=== PATIENT | male | born 2000 | race Caucasian/White ===

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

== ENCOUNTER 2019-04-06 14:55 | Emergency (ER) | payer MEDICAID, OTHER ==
[2019-04-06 15:15] VITALS: BP 173/98
--- NOTE | 2019-04-06 15:33 | ED Physician Documentation ---
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 Noted development of redness and tenderness later/next day and has continued.) Where injury occurred: Work Timing - onset: How many days ago (several) Timing - duration: Days Timing - details: Gradual onset, Still present Associated symptoms: Swelling, Discolored (red). No: Weakness, Numbness Contributing factors: Work related. No: Prior ortho surgery Similar symptoms before: Has not had sx before Recently seen: Not recently seen Review of Systems Constitutional: denies: Fever, Chills, Myalgias Nose: denies: Rhinorrhea / runny nose, Congestion Throat: denies: Sore throat Respiratory: denies: Cough Skin: reports: Abrasion (s). denies: Laceration (s) Musculoskeletal: reports: Joint pain (anterior left knee) Neurologic: denies: Focal weakness, Numbness PD PAST MEDICAL HISTORY - Past Medical History Cardiovascular: None Respiratory: None Musculoskeletal: None - Past Surgical History Past Surgical History: Yes HEENT: Myringotomy (tubes), Tonsil/Adenoidectomy - Present Medications Home Medications: Ambulatory Orders Medication Instructions Recorded Confirmed Cephalexin [Keflex] 500 mg PO TID #21 capsule 04/06/19 Ibuprofen 600 mg PO TID PRN #25 tablet 04/06/19 Tramadol HCl 50 mg PO Q6H PRN #15 tablet 04/06/19 - Allergies Allergies/Adverse Reactions: Allergies Allergy/AdvReac Type Severity Reaction Status Date / Time No Known Drug Allergies Allergy Verified 04/06/19 15:15 - Social History Does the pt smoke?: No Smoking Status: Current every day smoker Does the pt drink ETOH?: No Does the pt have substance abuse?: No - Immunizations Immunizations are current?: Yes PD ED PE NORMAL - Vitals Vital signs reviewed: Yes - General General: Alert and oriented X 3, No acute distress, Well developed/nourished - Derm Derm: Normal color, Warm and dry - Extremities Extremities: Other (right knee with mild anterior tenderness but no redness nor swelling. Left knee anteriorly with moderate tenderness, redness, and some swelling around the kneecap area. Abrasion noted lower anterior patellar area. No purulence. No knee joint effusion generally and he has pain only anteriorly. ) - Neuro Neuro: Alert and oriented X 3, No motor deficit, No sensory deficit Results - Vitals Vitals: Vital Signs - 24 hr 04/06/19 15:12 Temperature 37.3 C Heart Rate 95 Respiratory 14 Rate Blood Pressure 173/98 H O2 Saturation 99 Oxygen O2 Source Room air - Rads (name of study) left knee Radiology: Prelim report reviewed (prepatellar swelling. No effusion. No fractures nor FBs. ), EMP read contemporaneously, See rad report PD MEDICAL DECISION MAKING - ED course Complexity details: considered differential (redness and warmth anterior left knee, with also small abrasion. So likely inflammatory bursitis, but cannot exclude cellulitic/infectious bursitis. Does not seem like joint effusion, so doubt septic joint. ), d/w patient Departure - Departure Disposition: 01 Home, Self Care Clinical Impression: Prepatellar bursitis of left knee Condition: Stable Record reviewed to determine appropriate education?: Yes Instructions: ED Bursitis Follow-Up: Aquilino Deleon MD [Provider Admit Priv/Credential] - Prescriptions: Cephalexin [Keflex] 500 mg PO TID #21 capsule Ibuprofen 600 mg PO TID PRN #25 tablet PRN Reason: Pain Tramadol HCl 50 mg PO Q6H PRN #15 tablet PRN Reason: Pain Comments: Minimal work on hands and knees for several days until this improves. Your x- ray appears normal in the joint and bony shaw. On exam it does look like a bursitis which is inflammation in the cushion in the front part of the knee. This is commonly inflammatory and would get better with some anti-inflammatories and less irritation and activity. However it could be infectious given the small abrasion you have and will treat with antibiotics as well. See how it d oes over the next few days and recheck if not improved over the next 3 to 5 days. Forms: Activity restrictions Discharge Date/Time: 04/06/19 17:10
--- NOTE | 2019-04-06 16:07 | XRAY Report ---
Reason: pain to knee Procedure Date: 04/06/2019 Accession Number: [id number] / [id number] Procedure: XR - Knee 3 View LT CPT Code: FULL RESULT: EXAM: LEFT KNEE RADIOGRAPHY EXAM DATE: 04/06/2019 03:50 PM. CLINICAL HISTORY: Pain to knee. COMPARISON: None. TECHNIQUE: 3 views. FINDINGS: Bones: Normal. No fractures or bone lesions. Joints: Normal. No effusion. No subluxations. Soft Tissues: There is soft tissue swelling anterior to the patellar tendon. IMPRESSION: Anterior soft tissue swelling. No fracture or joint effusion. [facility]
[2019-04-06] MEDS ORDERED: ACETAMINOPHEN 325 MG TABLET PO STA (16:28)
[2019-04-06] MEDS ORDERED: NAPROXEN 250 MG TABLET PO STA (16:28)
[2019-04-06] MEDS ORDERED: cephALEXin 250 MG CAPSULE PO STA (16:28)
[2019-04-06] MEDS ORDERED: CHERRY SYRUP 10 ML UDC PO ONE (16:42)
[2019-04-06] MEDS ORDERED: DEXAMETHASONE 10 MG/ML VIAL PO STA (16:42)
== END 2019-04-06 17:10 | disposition home or self-care (01) ==
LOC: ED 14:55
DX: S80.212A Abrasion, left knee, initial encounter (principal); M70.42 Prepatellar bursitis, left knee; W22.8XXA Striking against or struck by other objects, initial encounter; Y93.89 Activity, other specified; Y92.008 Other place in unspecified non-institutional (private) residence as the place of occurrence of the external cause; Y99.0 Civilian activity done for income or pay; F17.200 Nicotine dependence, unspecified, uncomplicated
CPT/HCPCS: 1040M; 73562; 99283; A9270